=== PATIENT | female | born 1975 ===

== ENCOUNTER 2019-10-08 10:53 | Outpatient (CLI) | payer OTHER | END 2019-10-08 11:04 | disposition home or self-care (01) | LOC: RAD 10:53 | DX: R07.89 Other chest pain (principal) ==

== ENCOUNTER 2022-05-26 09:59 | Outpatient (CLI) | payer OTHER ==
[~2022-05-26] VITALS: Ht 152.4 cm; Wt 81.6 kg
== END 2022-05-26 10:00 | disposition home or self-care (01) ==
LOC: LAB 09:59
PROVIDERS: ATTEND Orthopaedic Surgery
DX: Z76.89 Persons encountering health services in other specified circumstances (principal); I10 Essential (primary) hypertension; I49.9 Cardiac arrhythmia, unspecified; D64.9 Anemia, unspecified; E88.9 Metabolic disorder, unspecified; D68.8 Other specified coagulation defects; N39.0 Urinary tract infection, site not specified; A49.02 Methicillin resistant Staphylococcus aureus infection, unspecified site; E11.9 Type 2 diabetes mellitus without complications